=== PATIENT | female | born 1945 | race Caucasian/White ===

== ENCOUNTER 2017-05-04 16:33 | Inpatient (IN) | payer MEDICARE, OTHER ==
[~2017-05-04] VITALS: Ht 157.5 cm; Wt 83.4 kg
[2017-05-04] VITALS (9 sets, daily range): BP systolic 123–146; BP diastolic 47–72
[~2017-05-04 16:33] MED LIST: ALBU8.5H8 IH; AMLO5TAB4 PO; BENZ-51 PO; CHOL100053 PO; DIGO0.25 PO; DIPH25CA7 PO; FLUTICASONE NASAL; FOCUS PO; FURO40TA5 PO; GABA-318 PO; HYDR25TA PO; LEVO100 PO; LOPE2TAB26 PO; LORA10TA7 PO; LOSA100T29 PO; MELO-106 PO; METO25TA6 PO; PANT40TA25 PO; PROM25TA7 PO; SERT50TA12 PO; [UNRECOGNIZED DRUG - OTHER]
[2017-05-04 16:57] LABS: BASOPHILS % (AUTO) 0.8 % (0.0-5.0); EOSINOPHILS % (AUTO) 3.4 % (0.0-8.0); HEMATOCRIT 37.3 % (36-48); LYMPHOCYTES % (AUTO) 22.5 % (21.0-51.0); MEAN CORPUSCULAR HEMOGLOBIN 29.2 pg (27.0-33.0); MEAN CORPUSCULAR HGB CONC 33.4 g/dL (32.0-36.0); MEAN CORPUSCULAR VOLUME 87.6 fL (79-99); MONOCYTES % (AUTO) 7.7 % (3.0-13.0); NEUTROPHILS % (AUTO) 65.6 % (40.0-77.0); PLATELET COUNT (AUTO) 201 K/uL (130-400); RED BLOOD CELL COUNT(AUTO) 4.26 MIL/uL (4.00-5.50); RED CELL DISTRIBUTION WIDTH 13.4 % (11.0-15.5); WHITE BLOOD COUNT (AUTO) 11.1 K/uL (4.8-10.8)
[2017-05-04] MEDS ORDERED: LIDOCAINE 2%-EPI 1:200,000 20 ML VIAL IJ ONE (17:02)
[2017-05-04 17:05] LABS: INR 1.06 (0.85-1.15); PROTHROMBIN TIME 11.1 SEC (9.6-11.6)
[2017-05-04 17:06] LABS: CREATININE 1.7 mg/dL (0.5-1.5); POTASSIUM 3.1 mmol/L (3.5-5.1)
[2017-05-04 17:12] LABS: BILIRUBIN,TOTAL 0.5 mg/dL (0.2-1.0); TOTAL PROTEIN, SERUM 7.7 g/dL (6.0-8.3)
[2017-05-04] MEDS: SODIUM CHLORIDE 0.9% 1000ML 1,000 ML IV SCH (20:30)
[2017-05-04] MEDS ORDERED: ONDANSETRON HCL 4 MG/2 ML VIAL IVP PRN (20:30)
[2017-05-04 21:00] LABS: APPEARANCE,URINE Clear (CLEAR); BILIRUBIN,URINE Negative (NEGATIVE); COLOR,URINE Yellow (YELLOW); GLUCOSE, URINE (UA) Negative (NEGATIVE); KETONES,URINE Negative (NEGATIVE); LEUKOCYTE ESTERASE ,URINE Trace (NEGATIVE); NITRATE,URINE Negative (NEGATIVE); OCCULT BLOOD,URINE Negative (NEGATIVE); PH,URINE 5.5 (5.0-8.0); PROTEIN,URINE Negative (NEGATIVE); UROBILINOGEN,URINE 0.2 mg/dL (0.2-1.0)
[2017-05-04 21:09] LABS: BACTERIA,URINE None Seen /HPF (None Seen); RBC,URINE None Seen /HPF (0-1); WBC,URINE 0-1 /HPF (0-1)
[2017-05-04] MEDS ORDERED: ACETAMINOPHEN 325 MG TAB PO PRN (21:15)
[2017-05-04] MEDS ORDERED: HYDRALAZINE HCL 20 MG/ML VIAL IV PRN (21:15)
[2017-05-04] MEDS ORDERED: ONDANSETRON HCL 4 MG/2 ML VIAL IV PRN (21:15)
[2017-05-04] MEDS ORDERED: MORPHINE SULFATE 2 MG/ML 1ML SYG IV PRN (21:15)
[2017-05-04] MEDS ORDERED: POTASSIUM CHLORIDE 20MEQ/100ML 100 ML IV PRN (21:45)
[2017-05-04] MEDS ORDERED: LIDOCAINE HCL-MPF 1% 2ML VIAL IVP PRN (21:45)
[2017-05-04] MEDS ORDERED: POTASSIUM CHLORIDE 10% ELIXIR 20 MEQ/15 ML UDCUP PO PRN (21:45)
[2017-05-04] MEDS ORDERED: SODIUM CHLORIDE 0.9% 250 ML IV ONE (22:07)
[2017-05-05] VITALS (22 sets, daily range): BP systolic 104–142; BP diastolic 38–74
[2017-05-05] MEDS: SODIUM CHLORIDE 0.9% 1000ML 1,000 ML IV SCH ×5 (01:01→23:44)
[2017-05-05 05:29] LABS: BASOPHILS % (AUTO) 0.6 % (0.0-5.0); HEMATOCRIT 29.2 % (36-48); LYMPHOCYTES % (AUTO) 21.9 % (21.0-51.0); MEAN CORPUSCULAR HEMOGLOBIN 29.9 pg (27.0-33.0); MEAN CORPUSCULAR HGB CONC 34.5 g/dL (32.0-36.0); MEAN CORPUSCULAR VOLUME 86.7 fL (79-99); MONOCYTES % (AUTO) 8.9 % (3.0-13.0); NEUTROPHILS % (AUTO) 65.6 % (40.0-77.0); PLATELET COUNT (AUTO) 137 K/uL (130-400); RED BLOOD CELL COUNT(AUTO) 3.37 MIL/uL (4.00-5.50); RED CELL DISTRIBUTION WIDTH 13.4 % (11.0-15.5); WHITE BLOOD COUNT (AUTO) 8.8 K/uL (4.8-10.8)
[2017-05-05 05:43] LABS: CREATININE 1.4 mg/dL (0.5-1.5)
[2017-05-05 05:47] LABS: POTASSIUM 2.8 mmol/L (3.5-5.1)
[2017-05-05] MEDS: PANTOPRAZOLE SODIUM 40 MG TABLET.DR PO SCH (08:38)
[2017-05-05] MEDS: ACETAMINOPHEN 325 MG TAB PO PRN ×2 (08:39→17:16)
[2017-05-05] MEDS: POTASSIUM CHLORIDE 20 MEQ ERTAB PO PRN ×3 (08:39→17:15)
[2017-05-05] MEDS ORDERED: METO100T7 PO (16:46)
[2017-05-05] MEDS ORDERED: ACET-2743 PO (16:46)
[2017-05-05] MEDS ORDERED: BUDE10.2 IH (16:51)
[2017-05-05] MEDS ORDERED: APIX5TAB PO (20:04)
[2017-05-06] VITALS (11 sets, daily range): BP systolic 111–177; BP diastolic 41–73
[2017-05-06 04:05] LABS: BASOPHILS % (AUTO) 0.5 % (0.0-5.0); EOSINOPHILS % (AUTO) 3.2 % (0.0-8.0); LYMPHOCYTES % (AUTO) 23.6 % (21.0-51.0); MEAN CORPUSCULAR HEMOGLOBIN 29.7 pg (27.0-33.0); MEAN CORPUSCULAR HGB CONC 34.2 g/dL (32.0-36.0); MEAN CORPUSCULAR VOLUME 86.9 fL (79-99); MONOCYTES % (AUTO) 8.1 % (3.0-13.0); NEUTROPHILS % (AUTO) 64.6 % (40.0-77.0); PLATELET COUNT (AUTO) 132 K/uL (130-400); RED BLOOD CELL COUNT(AUTO) 3.33 MIL/uL (4.00-5.50); RED CELL DISTRIBUTION WIDTH 13.3 % (11.0-15.5); WHITE BLOOD COUNT (AUTO) 7.4 K/uL (4.8-10.8)
[2017-05-06 04:12] LABS: INR 1.04 (0.85-1.15); PARTIAL THROMBOPLASTIN TIME 29.6 SEC (26.3-35.5); PROTHROMBIN TIME 10.9 SEC (9.6-11.6)
[2017-05-06 04:19] LABS: CREATININE 1.3 mg/dL (0.5-1.5); POTASSIUM 3.5 mmol/L (3.5-5.1)
[2017-05-06] MEDS: ACETAMINOPHEN 325 MG TAB PO PRN (06:01)
[2017-05-06] MEDS: SODIUM CHLORIDE 0.9% 1000ML 1,000 ML IV SCH (06:21)
[2017-05-06] MEDS: PANTOPRAZOLE SODIUM 40 MG TABLET.DR PO SCH (10:16)
[2017-05-06] MEDS ORDERED: TRAMADOL HCL 50 MG TABLET PO PRN (13:45)
[2017-05-07] VITALS: BP 165/73
[2017-05-07 04:24] VITALS: BP 157/70
[2017-05-07 06:27] LABS: DIGOXIN 0.68 ng/mL (0.50-2.00); THYROID STIMULATING HORMONE 1.21 uIU/mL (0.36-3.74)
[2017-05-07] MEDS ORDERED: LEVOTHYROXINE 100 MCG TABLET PO SCH (07:30)
[2017-05-07 07:50] VITALS: BP 150/66
[2017-05-07] MEDS ORDERED: AMLODIPINE BESYLATE 5 MG TAB PO SCH (09:00)
[2017-05-07] MEDS ORDERED: SERTRALINE HCL 50 MG TABLET PO SCH (09:00)
[2017-05-07] MEDS ORDERED: HYDROCHLOROTHIAZIDE 25 MG TABLET PO SCH (09:00)
[2017-05-07] MEDS ORDERED: LOSARTAN 100 MG TABLET PO SCH (09:00)
[2017-05-07] MEDS ORDERED: DIGOXIN 250 MCG TABLET PO SCH ×2 (09:00→16:00)
[2017-05-07] MEDS: PANTOPRAZOLE SODIUM 40 MG TABLET.DR PO SCH (10:19)
[2017-05-07] MEDS: POTASSIUM CHLORIDE 20 MEQ ERTAB PO PRN ×2 (10:20→14:35)
[2017-05-07 11:05] VITALS: BP 134/61
[2017-05-07 16:23] VITALS: BP 154/79
== END 2017-05-07 21:06 | disposition home or self-care (01) | DRG 682 ==
LOC: EDH 16:33 → EDHIP 18:06 → 2BH 19:00 → 4BH 05-06 12:07
PROVIDERS: ADMIT Family Medicine; ATTEND Family Medicine
PROC: 30233K1 Transfusion of Nonautologous Frozen Plasma into Peripheral Vein, Percutaneous Approach (ICD-10-PCS; principal; 2017-05-05)
DX: N17.9 Acute kidney failure, unspecified (principal); S06.4X9A Epidural hemorrhage with loss of consciousness of unspecified duration, initial encounter; I48.2 Chronic atrial fibrillation; E66.01 Morbid (severe) obesity due to excess calories; I11.0 Hypertensive heart disease with heart failure; I50.9 Heart failure, unspecified; G31.9 Degenerative disease of nervous system, unspecified; E03.9 Hypothyroidism, unspecified; E78.5 Hyperlipidemia, unspecified; W19.XXXA Unspecified fall, initial encounter; I25.10 Atherosclerotic heart disease of native coronary artery without angina pectoris; Z79.01 Long term (current) use of anticoagulants; Z95.0 Presence of cardiac pacemaker; J44.9 Chronic obstructive pulmonary disease, unspecified; Z68.33 Body mass index [BMI] 33.0-33.9, adult; Y93.89 Activity, other specified; Y92.89 Other specified places as the place of occurrence of the external cause; Y99.8 Other external cause status; Z88.8 Allergy status to other drugs, medicaments and biological substances
CPT/HCPCS: 36415; 36430; 70450; 71045; 80048; 80053; 80162; 81001; 84132; 84443; 85025; 85610; 85730; 86900; 86901; 86927; 93005; J0360; J2405; J3480; J3490; J7030; P9017

== ENCOUNTER 2018-11-03 05:30 | Day surgery (SDC) | payer OTHER ==
[~2018-11-03] VITALS: Ht 157.5 cm; Wt 77.1 kg
[~2018-11-03 05:30] MED LIST changes: +ACET-2743 PO; -ALBU8.5H8 IH; -BENZ-51 PO; +BUDE10.2 IH; -CHOL100053 PO; -FOCUS PO; -GABA-318 PO; +GABA600T10 PO; -LOPE2TAB26 PO; -LOSA100T29 PO; +LOSA100T58 PO; -MELO-106 PO; +METO100T7 PO; -METO25TA6 PO
[2018-11-03] MEDS ORDERED: SODIUM CHLORIDE 0.9% 1000ML 1,000 ML IV ONE (05:37)
[2018-11-03 06:10] VITALS: BP 149/72
[2018-11-03] MEDS ORDERED: APIX5TAB PO (06:31)
[2018-11-03 08:55] VITALS: BP 102/37
[2018-11-03 09:00] VITALS: BP 106/46
[2018-11-03 09:19] VITALS: BP 118/51
== END 2018-11-03 09:22 | disposition home or self-care (01) ==
LOC: DAH 05:30
PROVIDERS: ATTEND Internal Medicine
DX: K62.1 Rectal polyp (principal); K31.7 Polyp of stomach and duodenum; K29.50 Unspecified chronic gastritis without bleeding; K22.70 Barrett's esophagus without dysplasia; K57.30 Diverticulosis of large intestine without perforation or abscess without bleeding; K64.0 First degree hemorrhoids; K44.9 Diaphragmatic hernia without obstruction or gangrene; K22.8 Other specified diseases of esophagus; I45.10 Unspecified right bundle-branch block; J44.9 Chronic obstructive pulmonary disease, unspecified; I10 Essential (primary) hypertension; F41.9 Anxiety disorder, unspecified; F32.9 Major depressive disorder, single episode, unspecified; E11.9 Type 2 diabetes mellitus without complications; Z79.899 Other long term (current) drug therapy; E03.9 Hypothyroidism, unspecified; M19.90 Unspecified osteoarthritis, unspecified site; M81.0 Age-related osteoporosis without current pathological fracture; Z98.890 Other specified postprocedural states; Z95.0 Presence of cardiac pacemaker; Z90.49 Acquired absence of other specified parts of digestive tract; Z80.0 Family history of malignant neoplasm of digestive organs; K21.9 Gastro-esophageal reflux disease without esophagitis
CPT/HCPCS: 43239; 43251; 45380; 82948 ×2; 88305; 93005; A4606; J7030